=== PATIENT | male | born 1950 | race African-American/Black ===

== ENCOUNTER 2018-10-29 01:21 | Emergency (ER) | payer OTHER ==
[~2018-10-29] VITALS: Ht 185.4 cm; Wt 99.8 kg
[2018-10-29 01:34] VITALS: BP 118/67
== END 2018-10-29 02:22 | disposition left against medical advice (07) ==
LOC: ER 01:27
DX: I10 Essential (primary) hypertension (principal); H92.02 Otalgia, left ear; Z53.21 Procedure and treatment not carried out due to patient leaving prior to being seen by health care provider